=== PATIENT | female | born 1985 | race Caucasian/White ===

== ENCOUNTER 2017-04-01 04:39 | Emergency (ER) | payer MEDICAID ==
[~2017-04-01] VITALS: Ht 157.5 cm; Wt 82.0 kg
[~2017-04-01 04:39] MED LIST: CALC600T5 PO; FERR325C PO; IBUP-1542 PO; PRENAT PO
[2017-04-01 04:42] VITALS: Ht 157.5 cm; Wt 82.0 kg
[2017-04-01] MEDS ORDERED: ONDANSETRON (ODT) 4 MG TAB ODT STA (06:03)
[2017-04-01] MEDS ORDERED: ACETAMINOPHEN 325 MG TAB PO ONE (06:30)
[2017-04-01 06:31] LABS: ADD SCAN DIFF NO
[2017-04-01 06:33] LABS: BASOPHILS % 0.3 % (0.0-2.0); EOSINOPHILS # 0.1 10^3/ul (0.0-0.5); EOSINOPHILS % 0.9 % (0.0-7.0); HEMATOCRIT 39.1 % (37.0-47.0); HEMOGLOBIN 13.5 g/dl (12.0-16.0); LYMPHOCYTES # 2.2 10^3/ul (0.8-2.9); LYMPHOCYTES % 21.7 % (15.0-51.0); MEAN CORPUSCULAR HEMOGLOBIN 31.6 pg (29.0-33.0); MEAN CORPUSCULAR HGB CONC 34.5 g/dl (32.0-37.0); MEAN CORPUSCULAR VOLUME 91.6 fl (82.0-101.0); MEAN PLATELET VOLUME 10.4 fl (7.4-10.4); MONOCYTE # 0.5 10^3/ul (0.3-0.9); MONOCYTES % 4.6 % (0.0-11.0); NEUTROPHIL # 7.4 10^3/ul (1.6-7.5); PLATELET COUNT 224 10^3/UL (140-415); RED BLOOD COUNT 4.27 10^6/ul (4.20-5.40); RED CELL DISTRIBUTION WIDTH 11.8 % (11.5-14.5); WHITE BLOOD COUNT 10.2 10^3/ul (4.8-10.8)
[2017-04-01 06:49] LABS: ADD UMIC YES; URINE BILIRUBIN (Dip) NEGATIVE (NEGATIVE); URINE BLOOD (Dip) 2+ (NEGATIVE); URINE COLOR LT. YELLOW (YELLOW); URINE GLUCOSE (Dip) NEGATIVE (NEGATIVE); URINE KETONES (Dip) NEGATIVE (NEGATIVE); URINE LEUKOCYTE ESTERASE (Dip) TRACE (NEGATIVE); URINE NITRITE (Dip) NEGATIVE (NEGATIVE); URINE TOTAL PROTEIN (Dip) NEGATIVE (NEGATIVE); URINE UROBILINOGEN (Dip) 0.2 E.U./dL (0.1-1.0)
[2017-04-01 06:50] LABS: ALBUMIN/GLOBULIN RATIO 1.38
[2017-04-01 06:52] LABS: POTASSIUM 4.6 mmol/L (3.5-5.1)
[2017-04-01 06:53] LABS: BILIRUBIN,INDIRECT 0.3 mg/dl (0-1.1); BILIRUBIN,TOTAL 0.3 mg/dl (0.2-1.3); CALCIUM 9.1 mg/dl (8.4-10.2); CREATININE 0.54 mg/dl (0.44-1.00); TOTAL PROTEIN 8.6 g/dl (6.1-8.1)
[2017-04-01 07:15] LABS: BACTERIA,URINE MANY
--- NOTE | 2017-04-01 07:31 | RADRPT ---
PROCEDURE: Abdominal ultrasound, limited. CLINICAL INDICATION: Abdominal pain. TECHNIQUE: Multiple real-time images were acquired of the patient's right upper abdomen utilizing a high resolution transducer. COMPARISON: None FINDINGS: The liver demonstrates normal echogenicity and increased size measuring 19.9 cm. There is no focal mass or intrahepatic biliary ductal dilatation. The portal vein is patent. The gallbladder is not distended. Multiple echogenic gallstones are identified. There is no pericholecystic fluid or gall bladder wall thickening. The common bile duct measures 3.2 mm in maximal dimension. The pancreas i s obscured by overlying bowel gas. No free fluid is identified. The right kidney is normal size and echogenicity measuring 11.5 x 4.3 x 5.6 cm. There is no focal r enal mass or echogenic calculus identified. There is no obstructive uropathy. IMPRESSION: Cholelithiasis without ultrasound evidence of cholecystitis. Mild hepatomegaly. Pancreas obscured by overlying bowel gas. .Nick Powell MD, Date Time Electronically viewed and signed by .Nick Powell MD, MD on 04/01/2017 07:31 .T/
[2017-04-01] MEDS ORDERED: CEPH-443 PO (08:01)
--- NOTE | 2017-04-01 08:01 | ERD ---
ER Documentation Chief Complaint Date/Time DATE: 04/01/17 TIME: 07:44 Chief Complaint RIGHT FLANK PAIN SINCE YESTERDAY, VOMITING X1, NAUSEATED HPI This pleasant 31-year-old female presents to emergency department today with complaint of right upper quadrant and right epigastric abdominal pain. Patient reports the pain started intermittently last night. She was able to sleep on and off an hour at a time, reports pain increasing so she came to the emergency department for evaluation. Patient reports to the nurse practitioner in room that she had just vomited and that the pain is subsiding. She denies fever, chills, any nausea. Patient denies history of cholelithiasis, cholecystitis, patient has given 6 months ago. ROS All systems reviewed and are negative except as per history of present illness. Medications Home Meds Active Scripts Ibuprofen* (Ibuprofen*) 600 Mg Tablet, 600 MG PO Q6, #20 TAB 0 Refills Prov:TYRA YANES MD 10/06/16 Reported Medications Calcium Carbonate (CALCIUM) 600 Mg Tablet, 600 MG PO, TAB 08/20/16 Ferrous Sulfate (Iron) 325 Mg Capsule.er, 325 MG PO, CAP 08/20/16 Multivit/Min/Fol Ac/Iron/Pren* ( S*) Unknown Strength Tab, PO DAILY, TAB 02/16/16 Allergies Allergies: Coded Allergies: No Known Allergy (Unverified , 08/20/16) PMhx/Soc Medical and Surgical Hx: pt denies Surgical Hx Hx Miscellaneous Medical Probl: Yes (gastritis) Hx Alcohol Use: No Hx Substance Use: No Hx Tobacco Use: No Smoking Status: Never smoker Physical Exam Vitals Vital Signs Date Time Temp Pulse Resp B/P Pulse Ox O2 Delivery O2 Flow Rate FiO2 04/01/17 04:42 98.9 98 16 164/101 99 Physical Exam Const: No acute distress Head: Atraumatic Eyes: Normal Conjunctiva ENT: Normal External Ears, Nose and Mouth. Mucous membranes moist Neck: Full range of motion..~ No meningismus. Resp: Clear to auscultation bilaterally Cardio: Regular rate and rhythm, no murmurs Abd: Abdomen distended, soft, epigastric tenderness, positive Jessica sign, no CVA tenderness Skin: Back: No midline or flank tenderness Ext: Neur: Awake and alert Psych: Normal Mood and Affect Result Diagram: 04/01/17 0623 04/01/17 0623 Results 24 hrs Laboratory Tests Test 04/01/17 06:15 04/01/17 06:23 Urine Color LT. YELLOW Urine Clarity CLEAR Urine pH 6.0 Urine Specific [place] 1.025 Urine Ketones NEGATIVE Urine Nitrite NEGATIVE Urine Bilirubin NEGATIVE Urine Urobilinogen 0.2 E.U./dL Urine Leukocyte Esterase TRACE Urine Microscopic RBC 10-25/HPF Urine Microscopic WBC 5-10/HPF Urine Epithelial Cells MODERATE Urine Bacteria MANY Urine Hemoglobin 2+ Urine Glucose NEGATIVE% Urine Total Protein NEGATIVE White Blood Count 10.210^3/ul Red Blood Count 4.2710^6/ul Hemoglobin 13.5g/dl Hematocrit 39.1% Mean Corpuscular Volume 91.6fl Mean Corpuscular Hemoglobin 31.6pg Mean Corpuscular Hemoglobin Concent 34.5g/dl Red Cell Distribution Width 11.8% Platelet Count 97488^3/UL Mean Platelet Volume 10.4fl Neutrophils % 72.0% Lymphocytes % 21.7% Monocytes % 4.6% Eosinophils % 0.9% Basophils % 0.3% Nucleated Red Blood Cells % 0.0/100WBC Neutrophils # 7.410^3/ul Lymphocytes # 2.210^3/ul Monocytes # 0.510^3/ul Eosinophils # 0.110^3/ul Basophils # 0.010^3/ul Nucleated Red Blood Cells # 0.010^3/ul Sodium Level 140mmol/L Potassium Level 4.6mmol/L Chloride Level 104mmol/L Carbon Dioxide Level 27mmol/L Anion Gap 14 Blood Urea Nitrogen 13mg/dl Creatinine 0.54mg/dl Glucose Level 133mg/dl Calcium Level 9.1mg/dl Total Bilirubin 0.3mg/dl Direct Bilirubin 0.00mg/dl Indirect Bilirubin 0.3mg/dl Aspartate Amino Transf (AST/SGOT) 20IU/L Alanine Aminotransferase (ALT/SGPT) 40IU/L Alkaline Phosphatase 108IU/L Total Protein 8.6g/dl Albumin 5.0g/dl Globulin 3.60g/dl Albumin/Globulin Ratio 1.38 Lipase 101U/L Current Medications Medications (Trade) Dose Ordered Sig/Diamante Route PRN Reason Start Time Stop Time Status Last Admin Dose Admin Ondansetron HCl (Zofran Odt) 4 mg ONCE STAT ODT 04/01/17 06:03 04/01/17 06:07 DC 04/01/17 06:15 Acetaminophen (Tylenol Tab) 650 mg ONCE ONCE PO 04/01/17 06:30 04/01/17 06:31 DC 04/01/17 06:15 Interpretation text CBC shows no evidence of hemorrhage or infection Chemistry shows no evidence of significant electrolyte abnormalities or renal insufficiency Liver function tests shows no evidence of acute biliary or hepatic dysfunction Lipase shows no evidence of acute pancreatitis Urinalysis shows trace leukocytosis, +2 microscopic hematuria, many bacteria, nitrates negative. Findings consistent with urinary tract infection. Procedures/MDM PROCEDURE: Abdominal ultrasound, limited. CLINICAL INDICATION: Abdominal pain. TECHNIQUE: Multiple real-time images were acquired of the patient's right upper abdomen utilizing a high resolution transducer. COMPARISON: None FINDINGS: The liver demonstrates normal echogenicity and increased size measuring 19.9 cm. There is no focal mass or intrahepatic biliary ductal dilatation. The portal vein is patent. The gallbladder is not distended. Multiple echogenic gallstones are identified. There is no pericholecystic fluid or gallbladder wall thickening. The common bile duct measures 3.2 mm in maximal dimension. The pancreas is obscured by overlying bowel gas. No free fluid is identified. The right kidney is normal size and echogenicity measuring 11.5 x 4.3 x 5.6 cm. There is no focal renal mass or echogenic calculus identified. There is no obstructive uropathy. IMPRESSION: Cholelithiasis without ultrasound evidence of cholecystitis. Mild hepatomegaly. Pancreas obscured by overlying bowel gas. Electronically viewed and signed by .Nick Powell MD, on 04/01/2017 07:31 This 31-year-old female presents to emergency department for right upper quadrant abdominal pain, epigastric pain, nausea and vomiting 1. Pain reduced with vomiting. Cholecystitis, cholelithiasis suspected, pancreatitis, biliary colic, considered, unlikely appendicitis or pyelonephritis. Patient treated with Zofran, p.o. challenge, and Tylenol for pain, patient reports improvement of symptoms with interventions, is able to pass p.o. challenge, CBC negative for evidence of anemia or acute infection, chemistry negative for renal insufficiency or electrolyte imbalance. Urinalysis positive for evidence of a urinary tract infection. Ultrasound positive for Cholelithiasis without ultrasound evidence of cholecystitis. patient will be treated with Keflex 1 tab p.o. 3 times daily 7 days. Increase fluids, increase rest, patient given Motrin for pain, return to emergency department for recurrence of symptoms. I feel the patient is stable for discharge at this time. I have discussed results , examination findings, the treatment plan with the patient and family present prior to discharge. Indications for emergent reevaluation, side effects of medication were also discussed. All questions were answered. Patient verbalizes understanding and agrees with plan of care. Departure Diagnosis: Primary Impression: UTI (urinary tract infection) Urinary tract infection type: acute cystitis Hematuria presence: with hematuria Qualified Code: N30.01 - Acute cystitis with hematuria Additional Impression: Cholelithiasis Cholelithiasis location: gallbladder Cholecystitis presence: without cholecystitis Biliary obstruction: without biliary obstruction Qualified Code : K80.20 - Calculus of gallbladder without cholecystitis without obstruction Condition: Good Patient Instructions: Gallstones, Treating Gallstones, Understanding Urinary Tract Infections (UTIs) [facility] Additional Instructions: Thank you for for coming to [facility] for your care today. Please ask your nurse or provider if you have questions about your care today and do not leave until all your questions have been answered. Please use any medications given as directed and follow-up with your doctor (or the doctor you were referred to) in the next 2-3 days. If you do not have a primary care doctor you may follow up at the community [facility] [place] (listed below). You may also use motrin and tylenol as needed for fever and/or pain unless instructed otherwise by your provider or nurse. Indications for more urgent follow-up have been discussed, but you may return to the Emergency Department at ANY time for any worrisome or worsening symptoms. If you have abdominal pain, please know that no test or exam you received is perfect and you should follow up within 8 hours for continued pain. If you had any imaging studies today, such as an X-Ray or CT Scan, these studies will be reviewed later by a radiologist. You will be called if there are important findings that were not identified today, so make sure the contact information you provided at registration is correct. If you received any narcotic pain control medicine today, such as Vicodin, Morphine or Dilaudid, your coordination and judgment may be affected for a number of hours. Please do not drive or operate heavy machinery, and you may want someone to assist you at home. If you were given a prescription for narcotic medication, be aware that it is very addictive- use sparingly and only if necessary. SHELBY HENDERSON Apr 01, 2017 07:59
[2017-04-01] MEDS ORDERED: IBUP400T22 PO (08:02)
[2017-04-01 08:06] VITALS: BP 142/88; PULSE 87; RESP 16; TEMP 98.1
== END 2017-04-01 08:07 | disposition home or self-care (01) ==
LOC: FTE 04:39
DX: N30.01 Acute cystitis with hematuria (principal); K80.20 Calculus of gallbladder without cholecystitis without obstruction; R11.2 Nausea with vomiting, unspecified
CPT/HCPCS: 36415; 76705; 80053; 81001; 83690; 85025; Z7502; Z7610

== ENCOUNTER 2018-01-21 09:47 | Emergency (ER) | END 2018-01-21 14:10 | disposition home or self-care (01) ==

== ENCOUNTER 2018-04-19 10:12 | Emergency (ER) | END 2018-04-19 12:30 | disposition home or self-care (01) ==

== ENCOUNTER 2018-09-25 15:58 | Emergency (ER) | END 2018-09-25 23:50 | disposition home or self-care (01) ==

== ENCOUNTER 2018-10-02 19:50 | Emergency (ER) | END 2018-10-03 01:17 | disposition home or self-care (01) ==